=== PATIENT | female | born 1975 | race Caucasian/White ===

== ENCOUNTER 2017-03-12 15:53 | Emergency (ER) | payer OTHER ==
[~2017-03-12] VITALS: Ht 165.1 cm; Wt 95.0 kg
[2017-03-12 16:06] VITALS: Ht 165.1 cm; Wt 95.0 kg
[2017-03-12] MEDS ORDERED: LEVALBUTEROL (NEB) 1.25 MG/0.5 ML AMP INH STA (16:30)
[2017-03-12] MEDS ORDERED: IBUPROFEN 600 MG TAB PO ONE (16:30)
[2017-03-12] MEDS ORDERED: predniSONE 20 MG TAB PO STA (16:30)
--- NOTE | 2017-03-12 17:12 | RADRPT ---
PROCEDURE: Chest x-ray CLINICAL INDICATION: Cough TECHNIQUE: Chest single view COMPARISON: None FINDINGS: The heart is normal in size. The pulmonary vessels are normal in caliber. The lungs are clear. Th e costophrenic angles are sharp. The visualized bony thorax is unremarkable. IMPRESSION: No acute cardiopulmonary disease. RPTAT: HH .Brett Castro MD, Date Time Electronically viewed and signed by .Brett Castro MD, MD on 03/12/2017 17:12 .W/
[2017-03-12] MEDS ORDERED: ALBU8.5H3 INH (17:41)
[2017-03-12] MEDS ORDERED: IBUP-1542 PO (17:41)
[2017-03-12] MEDS ORDERED: AZIT250T94 PO (17:42)
[2017-03-12] MEDS ORDERED: BENZ100C70 PO (17:42)
[2017-03-12 17:53] LABS: URINE BLOOD (Dip) POC Negative (NEGATIVE)
[2017-03-12 18:24] VITALS: BP 119/71; PULSE 115; RESP 18; TEMP 98.9
--- NOTE | 2017-03-12 18:39 | ERD ---
ER Documentation Chief Complaint Date/Time DATE: 03/12/17 TIME: 18:19 Chief Complaint Complains of SOB HPI Patient is a 41-year-old female is in the emergency department with shortness of breath or cough. Patient states that she has had symptoms now for 3 days. Patient reports a productive cough with yellow phlegm production. Patient does report some shortness of breath. Patient reports hoarseness in her voice. Patient states she does have occasional chest pain and back pain when coughing only. Patient denies any fevers or chills at home. Patient states she has been taking vyuf-wys-vesfxuo cough pills with no alleviation of symptoms. Patient feels as if she has asthma. Patient denies any wheezing. Patient denies any previous history of pneumonia. No sick contacts. She denies any leg swelling, recent surgery, recent travel, OCP use. ROS All systems reviewed and are negative except as per history of present illness. Medications Home Meds Active Scripts Azithromycin* (Zithromax*) 250 Mg Tablet, 250 MG PO .ZPACK DIRECTED, #6 TAB TAKE 500 MG (2 TABS) THE FIRST DAY THEN 250 MG (1 TAB) DAYS 2-5 Prov:CAM CASEY PA-C 03/12/17 Benzonatate* (Tessalon Perle*) 100 Mg Capsule, 100 MG PO Q8H Y for COUGH, #20 CAP Prov:CAM CASEY PA-C 03/12/17 Ibuprofen* (Motrin*) 600 Mg Tab, 600 MG PO Q6, #30 TAB Prov:CAM CASEY PA-C 03/12/17 Albuterol Sulfate* (Proair HFA*) 8.5 Gm Hfa.aer.ad, 2 PUFF INH Q4, #1 INHALER Prov:CAM CASEY PA-C 03/12/17 Allergies Allergies: Coded Allergies: Penicillins (Verified Allergy, Mild, 03/12/17) PMhx/Soc Medical and Surgical Hx: pt denies Medical Hx, pt denies Surgical Hx FmHx Family History: No diabetes Physical Exam Vitals Vital Signs Date Time Temp Pulse Resp B/P Pulse Ox O2 Delivery O2 Flow Rate FiO2 03/12/17 16:06 100.6 111 20 134/71 100 Physical Exam GENERAL: Well-developed, well-nourished female. Appears in no acute distress. No abdominal retractions, no nasal flaring, no tripoding. HEAD: Normocephalic, atraumatic. No deformities or ecchymosis. EYE: Pupils equal, round, and reactive to light. EOMs intact. No conjunctival erythema. No eye discharge. ENT: External ear without any masses or tenderness. Auditory canals clear bilaterally. TM visualized bilaterally, non-erythematous, non-bulging. Nasal mucosa pink with no discharge. Oropharynx is pink without any tonsillar erythema or exudates. No uvula deviation. No kissing tonsils. NECK: Supple. No meningismus. Normal ROM of the neck. LUNG: Slight wheezing noted right lower lobe. HEART: Regular rate and rhythm. No murmurs, rubs or gallops. BACK: No midline tenderness. EXTREMITIES: Equal pulses bilaterally. No peripheral clubbing, cyanosis or edema. No unilateral leg swelling. NEUROLOGIC: Alert and oriented to person, place and time. Moving all four extremities. 5/5 strength in all extremities. Normal speech. Steady gait. SKIN: Normal color. Warm and dry. No rashes or lesions. Results 24 hrs Laboratory Tests Test 03/12/17 17:56 Bedside Urine pH (LAB) 7.5 Bedside Urine Protein (LAB) 1+ Bedside Urine Glucose (UA) Negative Bedside Urine Ketones (LAB) Negative Bedside Urine Blood Negative Bedside Urine Nitrite (LAB) Negative Bedside Urine Leukocyte Esterase (L 2+ Current Medications Medications (Trade) Dose Ordered Sig/Bertha Route PRN Reason Start Time Stop Time Status Last Admin Dose Admin Prednisone (Prednisone) 40 mg ONCE STAT PO 03/12/17 16:30 03/12/17 16:34 DC 03/12/17 16:43 Levalbuterol (Xopenex Neb) 1.25 mg ONCE STAT INH 03/12/17 16:30 03/12/17 16:34 DC 03/12/17 16:42 Ibuprofen (Motrin) 600 mg ONCE ONCE PO 03/12/17 16:30 03/12/17 16:34 DC 03/12/17 16:42 Procedures/MDM ED COURSE: The patient was stable throughout ED course. I kept the patient and/or family informed of laboratory and diagnostic imaging results throughout the ED course. DIAGNOSTIC IMAGING: Read by radiologist. []. PROCEDURES: None. MEDICATIONS GIVEN: Xopenex, ipratropium, prednisone Patient tolerated medication well with no adverse reactions. Patient reported improvement in pain. MEDICAL DECISION MAKING: This is a 41-year-old female presents with a productive cough and shortness of breath 3 days. Vital signs were reviewed. Patient was brought initial presentation. Patient was given ibuprofen here in the ED which did down trend her temperature. Patient was not hypoxic. ENT exam was normal. Initially revealed slight wheezing. Patient was given a breathing treatment as well as a single dose of prednisone here in the ED. Patient reported improvement in symptoms. Chest x-ray was negative. Given these findings, the patients presentation is most consistent with viral URI is acute bronchitis. At this time I will give the patient a prescription of antibiotics however she is advised to only fill the medication if her symptoms persist the past 2-3 days. I have a much lower clinical concern for bacterial infections including pneumonia, meningitis, sinusitis, otitis externa, acute otitis media, strep pharyngitis, epiglottitis or peritonsillar abscess. PRESCRIPTIONS: Tessalon Lutheres, Z-Rory, albuterol inhaler, ibuprofen DISCHARGE: At this time, patient is stable for discharge and outpatient management. Supportive therapies such as OTC throat lozenges, salt water gurgles, popsicles and jello discussed. I have instructed the patient to follow-up with his/her primary care physician in 1-2 days. I have instructed the patient to promptly return to the ER for any new or worsening symptoms including increased pain, swelling, fever, nausea, vomiting, weakness or difficulty breathing. The patient and/or family expressed understanding of and agreement with this plan. All questions were answered. Home care instructions were provided. Departure Diagnosis: Primary Impression: Acute bronchitis Bronchitis organism: unspecified organism Qualified Code: J20.9 - Acute bronchitis, unspecified organism Condition: Stable Patient Instructions: Bronchitis, Antiobiotic Treatment (Adult) Referrals: [facility] Additional Instructions: Call your primary care doctor TOMORROW for an appointment during the next 1-2 days.See the doctor sooner or return here if your condition worsens before your appointment time. CAM CASEY PA-C March 12, 2017 18:29
== END 2017-03-12 18:26 | disposition home or self-care (01) ==
LOC: FTE 15:53
DX: J20.9 Acute bronchitis, unspecified (principal)
CPT/HCPCS: 71010; 81003; 94664; J7512; Z7610